=== PATIENT | female | born 1960 | race American Indian/Alaskan Native ===

== ENCOUNTER 2016-11-17 10:49 | Emergency (ER) | payer OTHER ==
[2016-11-17 11:40] LABS: Basophils % (Auto) 0.5 % (0.0-1.8); Eosinophils % (Auto) 0.9 % (0.0-4.3); Hematocrit 41.6 % (30.3-42.9); Hemoglobin 14.2 gm/dl (10.1-14.3); Mean Corpuscular HGB Conc 34 % (30-34); Mean Corpuscular Hemoglobin 33 pg (28-32); Mean Corpuscular Volume 98 fl (79-97); Platelet Count 259 K/mm3 (140-440); Red Blood Count 4.24 M/mm3 (3.65-5.03); Red Cell Distribution Width 13.8 % (13.2-15.2); White Blood Count 9.1 K/mm3 (4.5-11.0)
[2016-11-17 11:57] LABS: Anion Gap 17 mmol/L; BUN/Creatinine Ratio 21.66; Blood Urea Nitrogen 13 mg/dL (7-17); Calcium 9.3 mg/dL (8.4-10.2); Carbon Dioxide 26 mmol/L (22-30); Chloride 96.5 mmol/L (98-107); Glucose 95 mg/dL (65-100); Potassium 3.9 mmol/L (3.6-5.0); Sodium 136 mmol/L (137-145)
[2016-11-17 12:54] VITALS: BP 129/89
--- NOTE | 2016-11-17 13:29 | XRay Report ---
ROUTINE CHEST, TWO VIEWS: SOB. PA and lateral views demonstrate the heart and mediastinal contour to be of normal size and shape. The lungs are clear and fully expanded and the soft tissues and bony structures are normal. IMPRESSION: Normal study.
== END 2016-11-17 15:25 | disposition left against medical advice (07) ==
LOC: ED 10:49
DX: R06.02 Shortness of breath (principal); R07.9 Chest pain, unspecified; R05 Cough; Z53.21 Procedure and treatment not carried out due to patient leaving prior to being seen by health care provider
CPT/HCPCS: 36415; 71020; 80048; 84484; 85025; 93005; 93010

== ENCOUNTER 2017-02-02 09:39 | Outpatient (CLI) | payer OTHER ==
--- NOTE | 2017-02-02 10:29 | Mammography Report ---
BILATERAL MAMMOGRAM: FINDINGS: The breast tissue is heterogeneously dense, which could obscure detection of small masses (approximately 50%-75% glandular). No mass, distortion, suspicious calcification, or skin change is seen. No significant change compared to prior exams dating back to 2015. CAD was utilized. IMPRESSION: Negative mammogram. There is no mammographic evidence of malignancy. RECOMMENDATION: Follow-up per ACS guidelines. BI-RADS CATEGORY: 1 = Negative ACR BI-RADS MAMMOGRAPHIC CODES: 0 = Needs additional imaging evaluation; 1 = Negative; 2 = Benign; 3 = Probably benign; 4 = Suspicious; 5 = Malignant; 6 = Known biopsy-proven malignancy COMMENT: 1. Dense breast tissue, i.e., adenosis, fibrocystic changes, etc., may obscure an underlying neoplasm. 2. Approximately 10% of cancers are not detected with mammography. 3. A negative mammography report should not delay biopsy if a clinically suspicious mass is present. COMMENT: Patient follow-up letters are generated in [facility].
== END 2017-02-02 09:40 | disposition home or self-care (01) ==
LOC: SPVWC 09:39
PROVIDERS: ATTEND Obstetrics & Gynecology
DX: Z12.31 Encounter for screening mammogram for malignant neoplasm of breast (principal)
CPT/HCPCS: 77067; G0202

== ENCOUNTER 2017-05-11 17:35 | Emergency (ER) | payer OTHER ==
[2017-05-11 18:03] VITALS: BP 179/94
== END 2017-05-11 18:13 | disposition left against medical advice (07) ==
LOC: ED 17:35
DX: I10 Essential (primary) hypertension (principal); J40 Bronchitis, not specified as acute or chronic; Z53.21 Procedure and treatment not carried out due to patient leaving prior to being seen by health care provider

== ENCOUNTER 2022-02-10 09:50 | Day surgery (SDC) | payer OTHER ==
[~2022-02-10 09:50] MED LIST: SODIUM CHLORIDE 0.9% 1000 ML 1,000 ML IV SCH; WATER FOR IRRIG STERILE 1,000 ML BOTTLE ONE; WATER FOR IRRIG STERILE 250 ML BOTTLE IR ONE
--- NOTE | 2022-02-10 10:34 | Anesthesia Day of Surgery ---
Anesthesia Day of Surgery - Day of Surgery Patient Examined: Yes Patient H&P Reviewed: Yes Patient is NPO: Yes
--- NOTE | 2022-02-10 10:35 | Anesthesia Consultation ---
Anesthesia Consult and Med Hx Date of service: 02/10/22 - Airway Anesthetic Teeth Evaluation: Good ROM Head & Neck: Adequate Mental/Hyoid Distance: Adequate Mallampati Class: Class II Intubation Access Assessment: Good - Pulmonary Exam CTA: Yes - Pre-Operative Health Status ASA Pre-Surgery Classification: ASA2 Proposed Anesthetic Plan: MAC - Cardiovascular System Hx Hypertension: Yes
[2022-02-10] MEDS ORDERED: LIDOCAINE MPF (2%) 20 MG/1 ML VIAL 5 ML ONE (10:37)
[2022-02-10] MEDS ORDERED: propofoL 200 MG/20 ML VIAL IV ONE ×2 (10:37→10:56)
--- NOTE | 2022-02-10 11:18 | Procedure Note ---
Date of procedure: 02/10/22 Pre-op diagnosis: Colon Polyp Screening/ F/H/O Colon Cancer (mother)/ P/H/O Colon Polyps Post-op diagnosis: other (Multiple,Colon Polyps (Recto-Sigmoid x3, Proximal, Transverse Colon x2)/ Few, Left Colon Diverticular Disease/ Normal Terminal Ileal Mucosa) Procedure: Colonoscopy with Cold Biopsy and Cold Snare Polypectomy Anesthesia: MAC Surgeon: HELENE RYAN Estimated blood loss: minimal Pathology: list Specimen disposition: to lab Condition: stable Disposition: same day (Avoid aspirin and NSAID for 5 days, otherwise resume previous medication and F/U in 1 to 2weeks ([phone]).)
--- NOTE | 2022-02-10 12:05 | Post Anesthesia Evaluation ---
- Post Anesthesia Evaluation Patient Participated: Yes Airway Patent: Yes Stable Respiratory Function: Yes Nausea/Vomiting: No Temp > 96.8F: Yes Pain Manageable: Yes Adequeate Hydration: Yes Anesthesia Complications: No
[2022-02-10 12:28] VITALS: BP 188/72
--- NOTE | 2022-02-10 14:06 | Operative Report ---
DATE OF SURGERY: 02/10/2022 PROCEDURE: Colonoscopy with cold biopsy and cold snare polypectomy. INDICATIONS: A 61-year-old -[place] female with a strong family history of colon cancer. The patient's mother had colon cancer. The patient gives a prior history of colon polyps. Colonoscopy was done to make sure that there was not any recurrence of any polyps. DESCRIPTION OF PROCEDURE: Procedure was done after getting informed consent with MAC anesthesia. Initial rectal examination was unremarkable. The instrument was passed through the rectum onto the cecum, which was identified by the ileocecal valve and the appendiceal orifice. The terminal ileum was intubated and showed normal ileal mucosa. 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 The proximal colon, which included the cecum and the ascending colon showed normal mucosa other than for the melanosis coli. There were 2 polyps noted in the proximal transverse colon that were removed by cold snare polypectomy and retrieved. The remaining part of the transverse colon showed normal mucosa. There were a few minor diverticula noted in the left colon. In the rectosigmoid area, there were 3 polyps noted, 2 in the rectum, 1 in the rectosigmoid that were removed by cold biopsy with minimal bleeding. There was no internal hemorrhoid noted on the retroverted view. ASSESSMENT: Colon polyp screening, family history of colon cancer. The patient's mother had colon cancer. Past history of colon polyps, multiple colon polyps noted in the rectosigmoid x 3 as well as 2 in the transverse colon, a few left colon diverticula, melanosis coli and normal terminal ileal mucosa. PLAN: The patient will be asked to avoid aspirin and aspirin-related products for the next 5 days, otherwise resume previous medication. Encourage fiber supplements and follow up in the office in 1-2 weeks' time. We will await for the pathology report to see when the patient requires her next colonoscopy. Procedure was done in the GI lab with assistance of the GI lab team, which included the GI nurse, the process controls technician and with assistance of anesthesia. TID: [id number] RECEIPT: [id number]
== END 2022-02-10 12:05 | disposition home or self-care (01) ==
LOC: GIO 09:50
DX: Z12.11 Encounter for screening for malignant neoplasm of colon (principal); K57.30 Diverticulosis of large intestine without perforation or abscess without bleeding; K64.8 Other hemorrhoids; D12.3 Benign neoplasm of transverse colon; I10 Essential (primary) hypertension; K62.1 Rectal polyp; Z79.899 Other long term (current) drug therapy; Z87.440 Personal history of urinary (tract) infections; Z80.0 Family history of malignant neoplasm of digestive organs; Z86.010 Personal history of colon polyps
CPT/HCPCS: 45380; 45385; 88305; J2704; J7030